=== PATIENT | female | born 1960 | race Caucasian/White ===

== ENCOUNTER 2021-02-03 14:35 | Outpatient (CLI) | payer OTHER | END 2021-02-03 14:36 | disposition home or self-care (01) | LOC: BICMRI 14:35 | PROVIDERS: ATTEND Nurse Practitioner Family | DX: M47.816 Spondylosis without myelopathy or radiculopathy, lumbar region (principal); M47.817 Spondylosis without myelopathy or radiculopathy, lumbosacral region; M70.62 Trochanteric bursitis, left hip | CPT/HCPCS: 72148 ==

== ENCOUNTER 2021-06-10 08:45 | Outpatient (CLI) | payer OTHER | END 2021-06-10 08:46 | disposition home or self-care (01) | LOC: DTY/OP 08:45 | PROVIDERS: ATTEND Specialist | DX: Z01.818 Encounter for other preprocedural examination (principal); E66.01 Morbid (severe) obesity due to excess calories | CPT/HCPCS: 97802 ==

== ENCOUNTER 2022-01-07 12:24 | Outpatient (CLI) | payer OTHER ==
[2022-01-07 14:16] LABS: #Eosinphils 0.2 10x3/uL (0.0-0.5); #Monocytes 0.8 10x3/uL (0.0-1.1); #Neutrophils 6.5 10x3/uL (1.5-8.4); %Basophils 0.3 % (0.0-2.0); %Lymphocytes 34.2 % (18.0-47.0); %Monocytes 7.3 % (0.0-10.0); %Neutrophils 55.9 % (40.0-75.0); Hemoglobin 14.8 g/dL (12.0-15.5); Mean Corpuscular HGB CONC 32.2 g/dL (32.0-36.0); Mean Corpuscular Hemoglobin 29.1 pg (27.0-33.0); Mean Corpuscular Volume 90.4 fl (81.6-98.3); Mean Platelet Volume 11.8 fl (7.4-10.4); Platelet Count 241 10x3/uL (150-450); RBC Distribution Width 13.2 % (11.5-14.5); Red Blood Cell (RBC) Count 5.08 10x6/uL (3.90-5.03); White Blood Cell (WBC) Count 11.6 10x3/uL (3.5-10.5)
[2022-01-07 14:27] LABS: Anion Gap 14 mmol/L (10-20); BUN (Urea Nitrogen) 24 mg/dL (9.8-20.1); Calc. Creatinine Clearance 0 mL/min (70-130); Calcium 9.5 mg/dL (7.8-10.44); Carbon Dioxide 29 mmol/L (22-29); Chloride 101 mmol/L (98-107); Glucose 83 mg/dL (70-105); Potassium 4.4 mmol/L (3.5-5.1); Sodium 140 mmol/L (136-145)
[2022-01-08 00:52] LABS: SARS-CoV-2 PCR by NAA Not Detected (NotDetected)
== END 2022-01-07 12:25 | disposition home or self-care (01) ==
LOC: LABBT 12:24
PROVIDERS: ATTEND Specialist
DX: Z01.818 Encounter for other preprocedural examination (principal); E66.01 Morbid (severe) obesity due to excess calories; Z20.822 Contact with and (suspected) exposure to COVID-19
CPT/HCPCS: 80048; 85025; 93005; 93010; U0003; U0005

== ENCOUNTER 2022-01-07 13:00 | Inpatient (IN) | payer OTHER ==
[2022-01-12] MEDS ORDERED: Heparin 5,000 UNITS/ML VIAL ONE (06:11)
[2022-01-12] MEDS ORDERED: Acetaminophen 500 MG TAB ONE (06:11)
[2022-01-12] MEDS ORDERED: Ketorolac Tromethamine 30 MG/ML VIAL ONE (06:11)
[2022-01-12] MEDS ORDERED: Midazolam HCl 2 mg/2 ml Vial ONE (06:28)
[2022-01-12] MEDS ORDERED: Lidocaine 2% Jelly 5 ML TUBE ONE (06:28)
[2022-01-12] MEDS ORDERED: fentaNYL Citrate/PF 100 MCG/2 ML SYRINGE ONE (06:28)
[2022-01-12] MEDS ORDERED: Lidocaine 1% w/Epinephrine 1:100K 20 ML VIAL ONE (06:40)
[2022-01-12] MEDS ORDERED: Bupivacaine 0.25% 10 ML VIAL ONE (06:40)
[2022-01-12] MEDS ORDERED: cefOXitin 2 GM VIAL ONE (07:22)
[2022-01-12] MEDS ORDERED: Sodium Chloride 0.9% 100 ML ONE (07:22)
[2022-01-12] MEDS ORDERED: diphenhydrAMINE 50 MG/ML VIAL ONE (07:33)
[2022-01-12] MEDS ORDERED: Rocuronium Bromide 10 MG/ML (10ML VIAL) ONE (07:33)
[2022-01-12] MEDS ORDERED: Ondansetron PF 4 MG/2 ML Vial ONE ×2 (07:33→09:48)
[2022-01-12] MEDS ORDERED: Glycopyrrolate 0.2 MG/ML 5 ML SYRINGE ONE (07:33)
[2022-01-12] MEDS ORDERED: Lidocaine 1% PF 5 ML VIAL ONE (07:33)
[2022-01-12] MEDS ORDERED: Dexamethasone 20 MG/5 ML VIAL ONE (07:33)
[2022-01-12] MEDS ORDERED: PROPOFOL 200 MG/20 ML VIAL ONE (07:33)
[2022-01-12] MEDS ORDERED: Meperidine HCl/PF 25 MG/ML VIAL SLOW IVP PRN (09:26)
[2022-01-12] MEDS ORDERED: Promethazine HCl 25 MG/ML VIAL IM PRN (09:26)
[2022-01-12] MEDS ORDERED: Ondansetron HCl/PF 4 MG/2 ML Vial IVP PRN (09:26)
[2022-01-12] MEDS ORDERED: HYDROmorphone 2 MG/ML VIAL SLOW IVP PRN (09:26)
[2022-01-12] MEDS ORDERED: Promethazine HCl 25 MG/ML VIAL IVPB PRN (09:26)
[2022-01-12] MEDS ORDERED: Hydrocodone-Acetamin 15 ML UDCUP PO PRN (09:30)
[2022-01-12] MEDS ORDERED: Dextrose 5% in Water 1,000 ML IV PRN (09:30)
[2022-01-12] MEDS ORDERED: Ondansetron PF 4 MG/2 ML Vial IVP PRN (09:30)
[2022-01-12] MEDS ORDERED: Non-Formulary Item 1 EACH (Albuterol Sulfate [Albuterol Sulfate Hfa] 8.5 GM Hfa.Aer.Ad) INH PRN (09:30)
[2022-01-12] MEDS ORDERED: diphenhydrAMINE 50 MG/ML VIAL IVP PRN (09:30)
[2022-01-12] MEDS ORDERED: hydrALAZINE 20 MG/ML VIAL SLOW IVP PRN (09:30)
[2022-01-12] MEDS ORDERED: Dextrose 50% Abboject 50 ML SYRINGE SLOW IVP PRN (09:30)
[2022-01-12] MEDS ORDERED: Albuterol 200 PUFF (6.7GM INHALER) INH PRN (09:39)
[2022-01-12] MEDS ORDERED: Fentanyl 100 MCG/2 ML VIAL ONE (09:42)
[2022-01-12] MEDS: D5 1/2 NS w/20 mEq KCL 1,000 ML IV SCH ×2 (10:41→16:35)
[2022-01-12] MEDS: Promethazine HCl 25 MG/ML VIAL IM PRN ×2 (11:09→22:20)
[2022-01-12 11:35] VITALS: BMI 41.1
[2022-01-12] MEDS ORDERED: Morphine 2 MG/ML VIAL SLOW IVP PRN (11:52)
[2022-01-12] MEDS: Morphine 4 MG/ML VIAL SLOW IVP PRN ×4 (12:22→20:46)
[2022-01-12] MEDS ORDERED: DULoxetine 60 MG CAP PO SCH (21:00)
[2022-01-12] MEDS ORDERED: Enoxaparin Sodium 40 MG/0.4 ML SYRINGE SC SCH (21:00)
[2022-01-13] MEDS: D5 1/2 NS w/20 mEq KCL 1,000 ML IV SCH ×2 (01:30→09:47)
[2022-01-13 05:40] LABS: #Lymphocytes 1.9 thou/uL (1.20-3.40); #Monocytes 1.1 thou/uL (0.11-0.59); #Neutrophils 13.9 thou/uL (1.40-6.50); %Basophils 0.1 % (0.0-1.0); %Lymphocytes 11.3 % (21.0-51.0); %Monocytes 6.5 % (0.0-10.0); %Neutrophils 82.1 % (42.0-75.0); Hemoglobin 15.6 g/dL (12.0-16.0); Mean Corpuscular HGB CONC 32.8 g/dL (32.0-36.0); Mean Corpuscular Hemoglobin 30.4 pg (27.0-31.0); Mean Corpuscular Volume 92.6 fL (78.0-98.0); Mean Platelet Volume 8.9 fL (7.4-10.4); Platelet Count 205 thou/uL (130-400); RBC Distribution Width 12.2 % (11.5-14.5); Red Blood Cell (RBC) Count 5.14 mill/uL (4.20-5.40); White Blood Cell (WBC) Count 16.9 thou/uL (4.8-10.8)
[2022-01-13 05:56] LABS: Anion Gap 13 mmol/L (10-20); BUN (Urea Nitrogen) 7 mg/dL (9.8-20.1); Calc. Creatinine Clearance 141 mL/min (70-130); Calcium 8.6 mg/dL (7.8-10.44); Carbon Dioxide 25 mmol/L (22-29); Chloride 103 mmol/L (98-107); Glucose 104 mg/dL (70-105); Potassium 4.1 mmol/L (3.5-5.1); Sodium 137 mmol/L (136-145)
[2022-01-13] MEDS ORDERED: Levothyroxine Sodium 25 MCG TAB PO SCH (06:00)
[2022-01-13 08:21] VITALS: TEMP 98.1
[2022-01-13 08:22] VITALS: BP 151/81
[2022-01-13] MEDS ORDERED: Pantoprazole 40 MG VIAL IVP SCH (09:00)
== END 2022-01-13 10:55 | disposition home or self-care (01) | DRG 621 ==
LOC: SURG A 01-12 05:22 → EDSTATUS 01-12 13:00
PROVIDERS: ADMIT Specialist; ATTEND Specialist
PROC: 0DB64Z3 Excision of Stomach, Percutaneous Endoscopic Approach, Vertical (ICD-10-PCS; principal; 2022-01-12)
DX: E66.01 Morbid (severe) obesity due to excess calories (principal); G89.29 Other chronic pain; F32.A Depression, unspecified; F41.9 Anxiety disorder, unspecified; J45.909 Unspecified asthma, uncomplicated; Z87.891 Personal history of nicotine dependence; Z68.41 Body mass index [BMI] 40.0-44.9, adult; Z90.49 Acquired absence of other specified parts of digestive tract; Z79.899 Other long term (current) drug therapy; Z80.8 Family history of malignant neoplasm of other organs or systems
CPT/HCPCS: 80048; 85025; 88307; 88342; A4649; C9113; J0694; J1100; J1200; J1644; J1650; J1885; J2250; J2270; J2405; J2550; J2704; J3010; J3480; J3490; S0020

== ENCOUNTER 2023-07-05 09:19 | Outpatient (CLI) | payer OTHER | END 2023-07-05 09:20 | disposition home or self-care (01) | LOC: BICMAMMO 09:19 | PROVIDERS: ATTEND Family Medicine | DX: Z12.31 Encounter for screening mammogram for malignant neoplasm of breast (principal) | CPT/HCPCS: 77067 ==

== ENCOUNTER 2025-05-01 10:08 | Outpatient (CLI) | payer OTHER | END 2025-05-01 10:09 | disposition home or self-care (01) | LOC: BICMAMMO 10:08 | PROVIDERS: ATTEND Family Medicine | DX: Z12.31 Encounter for screening mammogram for malignant neoplasm of breast (principal); Z12.2 Encounter for screening for malignant neoplasm of respiratory organs; Z87.891 Personal history of nicotine dependence | CPT/HCPCS: 71271; 77063; 77067 ==